=== PATIENT | male | born 1990 | race Caucasian/White ===

== ENCOUNTER 2020-05-13 10:22 | Inpatient (IN) | payer BC ==
[~2020-05-13] VITALS: Ht 182.9 cm; Wt 130.3 kg
--- NOTE | 2020-05-13 10:44 | NUR ---
STATES WENT THROUGH DTS WHILE AT [facility]
[2020-05-13 11:12] LABS: CALC OSMOLALITY 259 mosm/kg (275-300); CALCIUM 8.8 mg/dL (8.5-10.1); CARBON DIOXIDE 27.2 mmol/L (21.0-32.0); CHLORIDE - SERUM 92 mmol/L (98-107); CREATININE - SERUM 1.1 mg/dL (0.6-1.3); GLUCOSE 104 mg/dL (74-106); POTASSIUM - SERUM 3.3 mmol/L (3.5-5.1); SODIUM 129 mmol/L (136-145); UREA NITROGEN 14 mg/dL (7-18); eGFR NON AFRICAN AMERICAN 84 mL/min (90-120)
[2020-05-13 11:16] LABS: BASOPHILS 0.6 % (0-2); EOSINOPHILS 0.3 % (0-7); HEMATOCRIT 30.4 % (42.0-54.0); HEMOGLOBIN 9.7 g/dL (13.5-17.5); IMMATURE GRANULOCYTES 2.7 % (0-5); LYMPHOCYTE ABS# 1.78 10x3/uL (1.32-3.57); LYMPHOCYTES 15.1 % (15-50); MCH 30.3 pg (26.0-34.0); MCHC 31.9 g/dL (31.0-37.0); MEAN PLATELET VOLUME 9.8 fL (7.4-10.4); MONOCYTES 8.1 % (2-11); NEUTROPHILS 73.2 % (40-80); PLATELET COUNT 469 10x3/uL (130-400); RDW 14.3 % (11.5-14.5); WBC 11.8 10x3/uL (4.8-10.8)
[2020-05-13 11:22] LABS: ALBUMIN 2.1 g/dL (3.4-5.0); ALKALINE PHOSPHATASE 98 U/L (30-120); ALT (SGPT) 106 U/L (10-68); AMYLASE - SERUM 60 U/L (25-115); BILIRUBIN - TOTAL 2.78 mg/dL (0.2-1.3); LIPASE 358 U/L (73-393); PROTEIN - SERUM 7.7 g/dL (6.4-8.2); TROPONIN-I < 0.017 ng/mL (0.000-0.060)
[2020-05-13 11:49] VITALS: BP 116/72
[2020-05-13 12:50] VITALS: BP 103/58
[2020-05-13 13:51] VITALS: BP 104/57
[2020-05-13 14:37] LABS: BILIRUBIN NEGATIVE (NEGATIVE); KETONE NEGATIVE (NEGATIVE); NITRITE NEGATIVE (NEGATIVE); UROBILINOGEN NORMAL mg/dL (< 2)
[2020-05-13 15:49] VITALS: BP 129/70
[2020-05-13 16:31] VITALS: BP 154/85
--- NOTE | 2020-05-13 17:33 | MORECARE ---
CASE MANAGEMENT DISCHARGE SUMMARY PATIENT: ARI OWENS UNIT: [id number] ADM DATE: 05/13/20 AGE: 29 : 89 SEX: M ROOM/BED: D.E06 AUTHOR: JUVENTINO GARCIA PHYSICIAN: REFERRING PHYSICIAN: KARINA GAYTAN MD DATE OF SERVICE: 05/13/20 Discharge Plan Patient Name: ARI OWENS [facility] [facility] 1990 Planned Disposition: Home Anticipated Discharge Date: Discharge Date: Expected LOS: Initial Reviewer: [email or web address] Initial Review Date: 05/13/2020 Generated: 05/13/20 6:32 pm DCPIA - Discharge Planning Initial Assessment Updated by [email or web address]: Eduardo Garcia on 05/13/20 5:32 pm * Is the patient Alert and Oriented? Yes * How many steps to enter\exit or inside your home? 0/0 * [facility] * [facility]acy [facility] * Preadmission Environment Home Alone * ADLs Independent * Equipment None * Other Equipment n/a * List name and contact numbers for known caregivers / representatives who currently or will assist patient after discharge: VEENA OWENS (mother) [phone] * Verbal permission to speak to the caregivers and representatives has been obtained from the patient. Yes * Community resources currently utilized None * Please name any agencies selected above. n/a * Additional services required to return to the preadmission environment? No * Can the patient safely return to the preadmission environment? Yes * Has this patient been hospitalized within the prior 30 days at any hospital? No Patient Name: ARI OWENS Page [phone] at 1733 All edits/amendments must be made on the electronic document DICTATION DATE: 05/13/201732 BUDGET RECORD CLERK: NATALIE 05/13/201732 RPT#: [id number] DC DATE: STATUS: ADM IN [facility] [address] [place] [address] END OF REPORT
--- NOTE | 2020-05-13 17:41 | MORECARE ---
CASE MANAGEMENT DISCHARGE SUMMARY PATIENT: ARI ESCOBAR UNIT: [id number] ADM DATE: 05/13/20 AGE: 29 : [birth year] SEX: M ROOM/BED: D.E06 AUTHOR: RADHADOC PHYSICIAN: REFERRING PHYSICIAN: KARINA GAYTAN MD DATE OF SERVICE: 05/13/20 Discharge Plan Patient Name: ARI ESCOBRA Facility: [facility]:[place] : 1990 Planned Disposition: Home Anticipated Discharge Date: Discharge Date: Expected LOS: Initial Reviewer: [email or web address] Initial Review Date: 05/13/2020 Generated: 05/13/20 6:40 pm Comments DCP- Discharge Planning Updated by [email or web address]: Eduardo Garcia on 05/13/20 4:[address] CM met with patient to complete DC plan and to evaluate needs. Patient lives independently home alone. At discharge patient plans to return home and feels this is a safe discharge. CM discussed availability of home health, rehab services, and medical equipment. Patient declined HHS, SNF, IPR, and DME. Patient voiced no other needs at this time and is satisfied with DC plan. Transportation provider at discharge will be with his mother, Veena Escobar ([phone]). CM will continue to follow and will assist as needed with dc plans/needs. DCPIA - Discharge Planning Initial Assessment Updated by [email or web address]: Eduardo Garcia on 05/13/20 5:32 pm * Is the patient Alert and Oriented? Yes * How many steps to enter\exit or inside your home? 0/0 * [facility] * [facility] * Preadmission Environment Home Alone * ADLs Independent * Equipment None * Other Equipment n/a * List name and contact numbers for known caregivers / representatives who currently or will assist patient after discharge: VEENA ESCOBAR (mother) [phone] * Verbal permission to speak to the caregivers and representatives has been obtained from the patient. Yes * Community resources currently utilized None * Please name any agencies selected above. n/a * Additional services required to return to the preadmission environment? No * Can the patient safely return to the preadmission environment? Yes * Has this patient been hospitalized within the prior 30 days at any hospital? No Last DP export: 05/13/20 4:33 p Patient Name: ARI ESCOBAR Page 16040 at 1741 All edits/amendments must be made on the electronic document DICTATION DATE: 05/13/201739 NURSE CONSULTANT: NATALIE 05/13/201739 RPT#: [id number] DC DATE: STATUS: ADM IN [facility] [address] [place] [address] END OF REPORT
[2020-05-13 19:42] VITALS: BP 113/63
[2020-05-14] VITALS: BP 112/63
[2020-05-14 05:49] VITALS: BP 115/61
[2020-05-14 06:53] LABS: ALBUMIN 1.9 g/dL (3.4-5.0); ALKALINE PHOSPHATASE 81 U/L (30-120); ALT (SGPT) 86 U/L (10-68); BILIRUBIN - TOTAL 1.98 mg/dL (0.2-1.3); CALCIUM 8.5 mg/dL (8.5-10.1); CARBON DIOXIDE 25.3 mmol/L (21.0-32.0); CHLORIDE - SERUM 97 mmol/L (98-107); CREATININE - SERUM 1.1 mg/dL (0.6-1.3); GLUCOSE 92 mg/dL (74-106); MAGNESIUM - SERUM 2.1 mg/dL (1.8-2.4); PHOSPHOROUS 3.1 mg/dL (2.5-4.9); POTASSIUM - SERUM 3.6 mmol/L (3.5-5.1); SODIUM 134 mmol/L (136-145); eGFR NON AFRICAN AMERICAN 84 mL/min (90-120)
[2020-05-14 06:54] LABS: CALC OSMOLALITY 269 mosm/kg (275-300); UREA NITROGEN 19 mg/dL (7-18)
[2020-05-14 07:40] LABS: BASOPHILS 0.3 % (0-2); EOSINOPHILS 0.2 % (0-7); HEMATOCRIT 26.3 % (42.0-54.0); HEMOGLOBIN 8.3 g/dL (13.5-17.5); IMMATURE GRANULOCYTES 1.3 % (0-5); LYMPHOCYTES 12.1 % (15-50); MCH 30.4 pg (26.0-34.0); MCHC 31.6 g/dL (31.0-37.0); MCV 96.3 fL (80.0-100.0); MEAN PLATELET VOLUME 9.9 fL (7.4-10.4); NEUTROPHIL ABS# 7.01 10x3/uL (1.78-5.38); NEUTROPHILS 77.1 % (40-80); PLATELET COUNT 430 10x3/uL (130-400); RBC 2.73 10x6/uL (4.20-6.10); RDW 14.5 % (11.5-14.5); WBC 9.1 10x3/uL (4.8-10.8)
[2020-05-14 12:46] VITALS: BMI 36.6
--- NOTE | 2020-05-14 21:15 | NUR ---
PT A/O X4. RR24 COMPLAINS OF PAIN 8/10 ABDOMINAL. PRN PAIN MEDICATION GIVEN AT THIS TIME. VSS. WILL MONITOR.
--- NOTE | 2020-05-14 21:45 | NUR ---
PT STATES PAIN HAS DECREASED TO 3/10 AFTER PAIN MED GIVEN. RR E/U VSS. BED LOW CALL LIGHT WITHIN REACH. WILL CONTINUE TO MONITOR.
[2020-05-14 23:14] VITALS: BP 94/50
--- NOTE | 2020-05-15 03:28 | NUR ---
PT COMPLAINS OF PAIN 11/25. PRN PAIN MEDICATION GIVEN. VSS. WILL CONTINUE TO MONITIOR.
[2020-05-15 07:45] VITALS: BP 131/87
[2020-05-15 08:46] LABS: BASOPHILS 0.4 % (0-2); EOSINOPHILS 0.3 % (0-7); HEMOGLOBIN 8.2 g/dL (13.5-17.5); LYMPHOCYTE ABS# 1.75 10x3/uL (1.32-3.57); LYMPHOCYTES 16.3 % (15-50); MCH 30.6 pg (26.0-34.0); MCHC 31.5 g/dL (31.0-37.0); MEAN PLATELET VOLUME 9.2 fL (7.4-10.4); MONOCYTES 7.5 % (2-11); NEUTROPHIL ABS# 7.98 10x3/uL (1.78-5.38); NEUTROPHILS 74.5 % (40-80); PLATELET COUNT 452 10x3/uL (130-400); RBC 2.68 10x6/uL (4.20-6.10); RDW 14.2 % (11.5-14.5); WBC 10.7 10x3/uL (4.8-10.8)
--- NOTE | 2020-05-15 09:05 | NUR ---
PATIENT IS UP TO BATHROOM FREQUENTLY WITH C/O DIARRHEA. C/O ABDOMINAL PAIN AT 7/10, REQUESTS PAIN MEDICATION.
[2020-05-15 09:15] LABS: ALKALINE PHOSPHATASE 72 U/L (30-120); ALT (SGPT) 73 U/L (10-68); BILIRUBIN - TOTAL 1.98 mg/dL (0.2-1.3); CALC OSMOLALITY 264 mosm/kg (275-300); CALCIUM 7.7 mg/dL (8.5-10.1); CARBON DIOXIDE 23.2 mmol/L (21.0-32.0); CHLORIDE - SERUM 97 mmol/L (98-107); CREATININE - SERUM 1.2 mg/dL (0.6-1.3); GLUCOSE 88 mg/dL (74-106); POTASSIUM - SERUM 3.9 mmol/L (3.5-5.1); PROTEIN - SERUM 6.1 g/dL (6.4-8.2); SODIUM 131 mmol/L (136-145); UREA NITROGEN 20 mg/dL (7-18); eGFR NON AFRICAN AMERICAN 76 mL/min (90-120)
[2020-05-15 10:12] LABS: HEPATITIS C ANTIBODY 0.2 S/CO RAT (0.0-0.9)
[2020-05-15 11:35] VITALS: BP 124/68
--- NOTE | 2020-05-15 13:00 | NUR ---
PATIENT TEACHING ON INCENTIVE SPIROMETER. PATIENT RETURN DEMONSTRATES WITH 1000ML VOLUME AND GOOD EFFORT.
--- NOTE | 2020-05-15 15:33 | NUR ---
[facility] BED TO ROOM FOR PATIENT COMFORT. PATIENT IS AMBULATING TO BATHROOM 2 TO 3 TIMES PER HOUR WITH C/O DIARRHEA. MEDICATED EVERY 2 HOURS WITH 6MG MORPHINE FOR ABDOMINAL PAIN -11/25. RELIEF TO 07/26 WITH EACH DOSE.
--- NOTE | 2020-05-15 17:44 | NUR ---
REPORT CALLED TO WILMA GUZMAN, MED/SURG.
[2020-05-15] MEDS ORDERED: ZYLOPRIM300 MG PO (18:03)
[2020-05-15] MEDS ORDERED: METOPROLOL TART25 MG PO (18:03)
[2020-05-15] MEDS ORDERED: NEXIUM40 MG PO (18:03)
[2020-05-15 18:07] VITALS: BP 127/65; Ht 182.9 cm; Wt 130.3 kg
--- NOTE | 2020-05-15 18:15 | NUR ---
SPOKE WITH DR GAYTAN ABOUT PATIENT HAVING DIARRHEA. ORDER GIVEN FOR ONE TIME DOSE IMMODIUM AND TO COLLECT STOOL SAMPLE TO TEST FOR CDIFF.
--- NOTE | 2020-05-15 18:21 | NUR ---
HAT PLACED IN TOILET AND EDUCATION PROVIDED ON NEED FOR STOOL SAMPLE. VERBALIZED UNDERSTANDING.
--- NOTE | 2020-05-15 19:30 | NUR ---
PT IN BED, AAO X 3, RESP EVEN AND UNLABORED, NO DISTRESS NOTED, CL IN REACH.
[2020-05-15 20:00] VITALS: BP 110/66
[2020-05-16] VITALS: BP 113/75
[2020-05-16 04:00] VITALS: BP 126/64
--- NOTE | 2020-05-16 06:41 | NUR ---
PT IV TO LEFT AC LEAKING, IV REMOVED, THIS NURSE ATTEMPTED TO RESITE IV X 1 STICK, UNSUCCESSFUL AT THIS TIME, PT REFUSES TO BE STUCK AGAIN AT THIS TIME.
[2020-05-16 08:45] VITALS: BP 123/62
[2020-05-16 10:09] LABS: ALBUMIN 1.9 g/dL (3.4-5.0); ALKALINE PHOSPHATASE 69 U/L (30-120); ALT (SGPT) 58 U/L (10-68); BILIRUBIN - TOTAL 1.67 mg/dL (0.2-1.3); CALC OSMOLALITY 255 mosm/kg (275-300); CALCIUM 7.7 mg/dL (8.5-10.1); CARBON DIOXIDE 23.2 mmol/L (21.0-32.0); CHLORIDE - SERUM 97 mmol/L (98-107); GLUCOSE 107 mg/dL (74-106); POTASSIUM - SERUM 3.7 mmol/L (3.5-5.1); PROTEIN - SERUM 6.2 g/dL (6.4-8.2); SODIUM 127 mmol/L (136-145); UREA NITROGEN 16 mg/dL (7-18); eGFR NON AFRICAN AMERICAN > 90 mL/min (90-120)
[2020-05-16 11:04] LABS: BASOPHILS 0.3 % (0-2); EOSINOPHILS 0.3 % (0-7); HEMATOCRIT 23.1 % (42.0-54.0); IMMATURE GRANULOCYTES 0.8 % (0-5); LYMPHOCYTE ABS# 1.21 10x3/uL (1.32-3.57); LYMPHOCYTES 13.1 % (15-50); MCH 30.5 pg (26.0-34.0); MCHC 31.2 g/dL (31.0-37.0); MCV 97.9 fL (80.0-100.0); MONOCYTES 9.8 % (2-11); NEUTROPHIL ABS# 6.97 10x3/uL (1.78-5.38); NEUTROPHILS 75.7 % (40-80); PLATELET COUNT 443 10x3/uL (130-400); RBC 2.36 10x6/uL (4.20-6.10); RDW 14.2 % (11.5-14.5); WBC 9.2 10x3/uL (4.8-10.8)
[2020-05-16 11:13] LABS: HEMOGLOBIN 7.2 g/dL (13.5-17.5)
--- NOTE | 2020-05-16 11:18 | NUR ---
DR SALAS PAGED TO NOTIFY OF PATIENT'S HGB 7.2. WAITING CALL BACK.
[2020-05-16 11:59] VITALS: BP 117/58
--- NOTE | 2020-05-16 16:00 | NUR ---
PATIENT IN BED WITH IV INTACT. NO COMPLAINTS BESIDES HEARTBURN. STATED PROTONIX DID NOT HELP. CALL LIGHT WITHIN REACH.
[2020-05-16 17:28] VITALS: BP 105/66
[2020-05-16 21:06] VITALS: BP 137/46
[2020-05-17 02:32] VITALS: BP 120/73
--- NOTE | 2020-05-17 03:00 | NUR ---
I have reviewed this patient and I concur with the Shift Assessment completed by the Licensed Practical Nurse today this shift.
[2020-05-17 05:26] LABS: BASOPHILS 0.2 % (0-2); EOSINOPHILS 0.5 % (0-7); HEMATOCRIT 23.3 % (42.0-54.0); IMMATURE GRANULOCYTES 0.2 % (0-5); LYMPHOCYTE ABS# 0.77 10x3/uL (1.32-3.57); LYMPHOCYTES 13.8 % (15-50); MCH 30.4 pg (26.0-34.0); MCHC 32.2 g/dL (31.0-37.0); MEAN PLATELET VOLUME 9.4 fL (7.4-10.4); MONOCYTES 8.1 % (2-11); NEUTROPHIL ABS# 4.32 10x3/uL (1.78-5.38); NEUTROPHILS 77.2 % (40-80); RBC 2.47 10x6/uL (4.20-6.10); RDW 14.2 % (11.5-14.5)
[2020-05-17 05:32] LABS: HEMOGLOBIN 7.5 g/dL (13.5-17.5); MCV 94.3 fL (80.0-100.0); PLATELET COUNT 349 10x3/uL (130-400); WBC 5.6 10x3/uL (4.8-10.8)
[2020-05-17 06:05] VITALS: BP 110/54
--- NOTE | 2020-05-17 09:00 | NUR ---
ASSESSMENT PER FLOW SHEET. PATIENT IS WITHOUT DISTRESS. MONITOR FOR NEEDS
[2020-05-17 10:00] VITALS: BP 120/61
[2020-05-17 12:23] VITALS: BP 127/53
--- NOTE | 2020-05-17 14:17 | NUR ---
HAS BEEN RESTING.DENIES NEEDS.CALL LIGHT IN REACH
[2020-05-17 17:37] VITALS: BP 104/51
--- NOTE | 2020-05-17 19:00 | NUR ---
RECEIVED REPORT, ASSUMED CARE, BREATHING EVEN UNLABORED, CALL LIGHT IN REACH, BED LOWEST POSITION, DENIES NEEDS, ENCOURAGED PT TO NOTIFY STAFF OF ANY NEEDS
[2020-05-17 21:18] VITALS: BP 127/61
[2020-05-18 02:01] VITALS: BP 123/58
--- NOTE | 2020-05-18 03:00 | NUR ---
I have reviewed this patient and I concur with the Shift Assessment completed by the Licensed Practical Nurse today this shift.
[2020-05-18 04:54] LABS: BASOPHILS 0.2 % (0-2); EOSINOPHILS 0.5 % (0-7); HEMATOCRIT 25.4 % (42.0-54.0); HEMOGLOBIN 7.9 g/dL (13.5-17.5); IMMATURE GRANULOCYTES 0.4 % (0-5); LYMPHOCYTE ABS# 1.01 10x3/uL (1.32-3.57); LYMPHOCYTES 12.5 % (15-50); MCH 29.8 pg (26.0-34.0); MCHC 31.1 g/dL (31.0-37.0); MCV 95.8 fL (80.0-100.0); MEAN PLATELET VOLUME 9.4 fL (7.4-10.4); MONOCYTES 7.2 % (2-11); NEUTROPHIL ABS# 6.42 10x3/uL (1.78-5.38); NEUTROPHILS 79.2 % (40-80); PLATELET COUNT 449 10x3/uL (130-400); RBC 2.65 10x6/uL (4.20-6.10); RDW 14.3 % (11.5-14.5); WBC 8.1 10x3/uL (4.8-10.8)
[2020-05-18 06:12] VITALS: BP 89/38
--- NOTE | 2020-05-18 08:00 | NUR ---
ASSESSMENT PER FLOW SHEET. PATIENT IS WITHOUT DISTRESS.CALL LIGHT IN REACH. DENIES NEEDS
[2020-05-18 09:20] VITALS: BP 122/56
[2020-05-18 13:38] VITALS: BP 103/49
[2020-05-18 17:13] VITALS: BP 111/60
--- NOTE | 2020-05-18 18:38 | NUR ---
HAS AMBULATED MULTIPLE TIMES TODAY IN HALLS. TOLERATING REG DIET.CONT PLAN OF CARE
--- NOTE | 2020-05-18 19:00 | NUR ---
RECEIVED REPORT, ASSUMED CARE, BREATHING EVEN UNLABORED, CALL LIGHT IN REACH, BED LOWEST POSITION, DENIES NEEDS, ENCOURAGED PT TO NOTIFY STAFF OF ANY NEEDS
[2020-05-18 21:39] VITALS: BP 109/62
--- NOTE | 2020-05-19 04:16 | NUR ---
I have reviewed this patient and I concur with the Shift Assessment completed by the Licensed Practical Nurse today this shift.
[2020-05-19 06:44] VITALS: BP 111/53
[2020-05-19 06:49] LABS: BASOPHILS 0.2 % (0-2); EOSINOPHILS 0.4 % (0-7); IMMATURE GRANULOCYTES 0.4 % (0-5); LYMPHOCYTE ABS# 0.86 10x3/uL (1.32-3.57); LYMPHOCYTES 17.4 % (15-50); MCH 30.1 pg (26.0-34.0); MCHC 31.3 g/dL (31.0-37.0); MCV 96.2 fL (80.0-100.0); MEAN PLATELET VOLUME 9.3 fL (7.4-10.4); MONOCYTES 7.1 % (2-11); NEUTROPHIL ABS# 3.69 10x3/uL (1.78-5.38); NEUTROPHILS 74.5 % (40-80); PLATELET COUNT 363 10x3/uL (130-400); RBC 2.39 10x6/uL (4.20-6.10); RDW 14.1 % (11.5-14.5)
[2020-05-19 07:16] LABS: HEMOGLOBIN 7.2 g/dL (13.5-17.5)
[2020-05-19 08:49] VITALS: BP 104/58
--- NOTE | 2020-05-19 09:21 | NUR ---
DR SALAS PAGED TO NOTIFY OF HGB 7.2. WAITING CALL BACK.
--- NOTE | 2020-05-19 09:23 | NUR ---
ORDER PLACED FOR BLOOD TRANSFUSION PER MD.
--- NOTE | 2020-05-19 10:06 | NUR ---
ALERT AND ORIENTED. ASSESSMENT COMPLETE. DENIES NEEDS. BED LOW. CALL CASTELLON AND PERSONAL ITEMS IN REACH. WILL CONTINUE TO MONITOR.
--- NOTE | 2020-05-19 10:41 | NUR ---
SPOKE WITH CT WHO STATES PATIENT NEEDS IV CONTRAST FOR CTA FOR PACREATITIS. ORDER IS FOR ORAL CONTRAST ONLY. DR DOSS PAGED FOR CLARIFICATION. WAITING CALL BACK.
--- NOTE | 2020-05-19 10:45 | NUR ---
SPOKE WITH DR DOSS WHO STATES OK FOR IV CONTRAST. NUBIA IN CT STATES WILL BE UP SOON TO GET PATIENT.
[2020-05-19 12:05] VITALS: BP 119/53
--- NOTE | 2020-05-19 13:57 | NUR ---
SECOND IV SITED TO LFA FOR ABX. BLOOD TRANSFUSION UNIT 1 INITIATED TO LEFT HAND IV. VITALS STABLE.
--- NOTE | 2020-05-19 14:06 | NUR ---
BLOOD CONTINUES TRANSFUSING. VITALS REMAIN STABLE.
--- NOTE | 2020-05-19 14:20 | NUR ---
Nutrition Follow-up/Re-assessment: Diet: Cardiac NO FAT PO intake: ~78% average x last 9 meals; spoke with patient at bedside. He states that he is aware that MD does not want him consuming fat. Discussed how we would help manage with this diet in the kitchen. He states that he likes fruits but does not care for vegetables much. States that he will try to eat more vegetables. States that he would eat baked chicken breast and potatoes and rice as well. He states that he will be NPO at midnight for possible surgery tomorrow. He also states that his sodium is low and request gatorade for replenishment. Last BM: 05/18/19 x 10 (diarrhea). Wt: 270# (05/15/20) Meds noted: abx, banana bag, probiotics Labs noted: Na 127(L), Glu 107(H), Alb 1.9(L) Estimated and energy and protein needs unchanged from initial assessment. Recommend: -PO diet per MD, dietary will try to accomodate this as much as possible. -Will add gatorade with meal trays per patient request. -RD will follow-up within 3-4 days.
--- NOTE | 2020-05-19 17:33 | NUR ---
BLOOD TRANSFUSION UNIT 2 INITIATED. VITALS STABLE. WILL CONTINUE TO MONITOR.
[2020-05-19 18:05] VITALS: BP 102/56
--- NOTE | 2020-05-19 19:00 | NUR ---
BEDSIDE REPORT RECEIVED AND CARE OF PT ASSUMED.
--- NOTE | 2020-05-19 19:10 | NUR ---
2ND UNIT OF 2 INFUSING AT SHIFT CHANGE.
[2020-05-19 20:48] VITALS: BP 117/66
--- NOTE | 2020-05-19 21:05 | NUR ---
2ND UNIT OF 2 COMPLETE AND LINE FLUSHING.
[2020-05-20] VITALS (9 sets, daily range): BP systolic 101–121; BP diastolic 64–91
[2020-05-20 08:22] LABS: BASOPHILS 0.2 % (0-2); EOSINOPHILS 1.4 % (0-7); HEMATOCRIT 28.8 % (42.0-54.0); HEMOGLOBIN 9.2 g/dL (13.5-17.5); IMMATURE GRANULOCYTES 0.2 % (0-5); LYMPHOCYTE ABS# 0.78 10x3/uL (1.32-3.57); LYMPHOCYTES 18.4 % (15-50); MCH 30.3 pg (26.0-34.0); MCHC 31.9 g/dL (31.0-37.0); MCV 94.7 fL (80.0-100.0); MEAN PLATELET VOLUME 10.4 fL (7.4-10.4); MONOCYTES 10.6 % (2-11); NEUTROPHIL ABS# 2.94 10x3/uL (1.78-5.38); NEUTROPHILS 69.2 % (40-80); PLATELET COUNT 321 10x3/uL (130-400); RBC 3.04 10x6/uL (4.20-6.10); RDW 15.2 % (11.5-14.5); WBC 4.3 10x3/uL (4.8-10.8)
--- NOTE | 2020-05-20 14:01 | NUR ---
PATIENT PREOPED AT THIS TIME. IV INTACT. NO COMPLAINTS. EXPLAINED HE HAD TO REMOVE HIS PANTS AND SOCKS BEFORE GOING. VERBALIZED UNDERSTANDING. CALL LIGHT WITHIN REACH.
--- NOTE | 2020-05-20 15:50 | NUR ---
PATIENT TO SURGERY
--- NOTE | 2020-05-20 17:34 | NUR ---
2 LAPS LEFT IN ABDOMEN PER DR DOSS, PLAN ON BRING BACK TO OR IN 48HOURS
[2020-05-20 19:54] LABS: HEMATOCRIT 26.5 % (42.0-54.0); HEMOGLOBIN 8.5 g/dL (13.5-17.5)
--- NOTE | 2020-05-20 20:43 | NUR ---
CALLED AND SPOKE WITH ANSWERING SERVICE FOR DR GUEVARA. NUMBER LEFT FOR CALL BACK.
--- NOTE | 2020-05-20 20:46 | NUR ---
ANP CALLED BACK AND RELATED DR GUEVARA WANTS TO BE CALLED ON HIS PATIENT. WAS GIVEN DR GUEVARA'S CELL PHONE NUMBER.
--- NOTE | 2020-05-20 20:50 | NUR ---
DR GUEVARA CALLED AND WAS INFORMED THE XRAY SHOWED THE RIGHT IJ NEEDED TO BE PULLED BACK 12 CM. SAID TO CALL ANESTHESIA. CALLED ANESTHESIA.
--- NOTE | 2020-05-20 21:05 | NUR ---
ARIA TORRES CAME AND REPLACED THE RIGHT IJ. X RAY ORDERED.
--- NOTE | 2020-05-20 23:25 | NUR ---
RECEIVED XRAY REPORT ON RIGHT IJ. CALLED BRIAN NAVARRETE CRNA AND INFORMED HIM OF THE REPORT. SAILING OFFICER CONFIRMED THE RIGHT IJ CAN BE USED.
[2020-05-21] VITALS (28 sets, daily range): BP systolic 101–131; BP diastolic 60–92
--- NOTE | 2020-05-21 00:06 | NUR ---
CALLED NIKO GAYTAN MD REGARDING FINDINGS ON CXR.
--- NOTE | 2020-05-21 00:35 | NUR ---
MOSES LEIVA CALLED BACK AND WAS INFORMED OF THE NEW FINDINGS ON THE CXR OF NEW PATCHY [place] OPACITIES BILATERALLY. ORDER RECEIVED FOR COVID 19 ANTIGEN AND SARS TO BE COLLECTED.
--- NOTE | 2020-05-21 00:50 | NUR ---
PATIENT SWABBED AND TAKEN TO LAB. LINENS CHANGED FROM DRAINAGE OF INCISION SITE.
[2020-05-21 02:33] LABS: SARS-CoV-2 ANTIGEN NEGATIVE- SARS-COV-2 (NEGATIVE)
[2020-05-21 05:48] LABS: BASOPHILS 0.6 % (0-2); EOSINOPHILS 0.6 % (0-7); HEMOGLOBIN 7.6 g/dL (13.5-17.5); IMMATURE GRANULOCYTES 0.3 % (0-5); LYMPHOCYTES 13.8 % (15-50); MCHC 31.7 g/dL (31.0-37.0); MCV 94.9 fL (80.0-100.0); MEAN PLATELET VOLUME 10.1 fL (7.4-10.4); MONOCYTES 10.5 % (2-11); NEUTROPHILS 74.2 % (40-80); PLATELET COUNT 285 10x3/uL (130-400); RBC 2.53 10x6/uL (4.20-6.10); RDW 14.7 % (11.5-14.5); WBC 3.6 10x3/uL (4.8-10.8)
[2020-05-21 05:53] LABS: ALBUMIN 1.3 g/dL (3.4-5.0); ALKALINE PHOSPHATASE 45 U/L (30-120); ALT (SGPT) 26 U/L (10-68); BILIRUBIN - TOTAL 0.93 mg/dL (0.2-1.3); CALC OSMOLALITY 272 mosm/kg (275-300); CALCIUM 7.2 mg/dL (8.5-10.1); CARBON DIOXIDE 25.6 mmol/L (21.0-32.0); CHLORIDE - SERUM 104 mmol/L (98-107); CREATININE - SERUM 0.6 mg/dL (0.6-1.3); GLUCOSE 99 mg/dL (74-106); LIPASE 128 U/L (73-393); POTASSIUM - SERUM 3.5 mmol/L (3.5-5.1); PROTEIN - SERUM 4.7 g/dL (6.4-8.2); SODIUM 137 mmol/L (136-145); UREA NITROGEN 9 mg/dL (7-18); eGFR NON AFRICAN AMERICAN > 90 mL/min (90-120)
--- NOTE | 2020-05-21 07:10 | NUR ---
PT RECIEVED RESTING IN BED AT THIS TIME. SEE SHIFT ASSESSMENT FOR ASSESSMENT FINDINGS
--- NOTE | 2020-05-21 09:10 | NUR ---
SPOKE TO MOM UPDATED CONDITION
--- NOTE | 2020-05-21 11:16 | NUR ---
Nutrition follow-up: Pt s/p exploratory lap; now in ICU Clear liquid diet labs reviewed Wt: 293# RDN will monitor patients diet advancement, tolerance and progress Follow-up: 05/23/20
--- NOTE | 2020-05-21 12:00 | NUR ---
MORPHINE IV PUSH IS NOT HELPING PT WITH PAIN, CONTACTED DR. DOSS FOR FUTHER ORDERS.
--- NOTE | 2020-05-21 18:26 | NUR ---
I have reviewed this patient and I concur with the Shift Assessment completed by the Licensed Practical Nurse today this shift.
[2020-05-22] VITALS (16 sets, daily range): BP systolic 118–143; BP diastolic 66–96
--- NOTE | 2020-05-22 01:05 | NUR ---
STERILE SITE CARE. TRANSPARENT DRESSING AND CHG PATCH APPLIED PER WILMA CUMMINGS
[2020-05-22 04:27] LABS: BASOPHILS 0.7 % (0-2); EOSINOPHILS 1.9 % (0-7); IMMATURE GRANULOCYTES 0.2 % (0-5); LYMPHOCYTE ABS# 0.64 10x3/uL (1.32-3.57); LYMPHOCYTES 15.3 % (15-50); MCH 29.6 pg (26.0-34.0); MEAN PLATELET VOLUME 9.4 fL (7.4-10.4); MONOCYTES 9.3 % (2-11); NEUTROPHIL ABS# 3.04 10x3/uL (1.78-5.38); NEUTROPHILS 72.6 % (40-80); PLATELET COUNT 270 10x3/uL (130-400); WBC 4.2 10x3/uL (4.8-10.8)
[2020-05-22 04:37] LABS: HEMATOCRIT 30.3 % (42.0-54.0); HEMOGLOBIN 9.7 g/dL (13.5-17.5); MCV 92.4 fL (80.0-100.0); RBC 3.28 10x6/uL (4.20-6.10)
[2020-05-22 04:47] LABS: CALC OSMOLALITY 261 mosm/kg (275-300); CALCIUM 7.3 mg/dL (8.5-10.1); CARBON DIOXIDE 26.1 mmol/L (21.0-32.0); CHLORIDE - SERUM 102 mmol/L (98-107); CREATININE - SERUM 0.6 mg/dL (0.6-1.3); GLUCOSE 97 mg/dL (74-106); POTASSIUM - SERUM 3.4 mmol/L (3.5-5.1); SODIUM 131 mmol/L (136-145); UREA NITROGEN 9 mg/dL (7-18); eGFR NON AFRICAN AMERICAN > 90 mL/min (90-120)
--- NOTE | 2020-05-22 13:37 | NUR ---
TRANSFER FROM ICU BY BED. OREINTED TO ROOM. CALL LIGHT IN REACH. WILL CONT. PLAN OF CARE.
[2020-05-23 00:39] VITALS: BP 144/84
[2020-05-23 05:31] VITALS: BP 151/82
--- NOTE | 2020-05-23 10:00 | NUR ---
ALERT AND ORIENTED X4. IVF INFUSING TO RIGHT IJ WITH NO S/S OF INFECTION/INFILTRATION WITH MICROSTRATEGY ARCHITECT DEVELOPER MS CONTINUOUS INFUSION NOTED WITH NO APNEA NOTED. UP WITH ASSSIT TO BATHROOM WITH R/WALKER. ABDOMINAL WOUND VAC INTACT WITH KATHLEEN DRAINS X2 WITH SEROUS DRAINAGE NOTED. REFUSES SCD'S AT THIS TIME. ENCOURAGED TO USE CALL LIGHT FOR ASSIST. BOWEL SOUNDS HYPOACTIVE WITH SOME FLATULANCE NOTED WHILE UP IN BATHROOM.
--- NOTE | 2020-05-23 12:21 | NUR ---
Nutrition Reassessment/Follow-up: Pt in droplet isolation; covid-19+. POD 1 washout & debridement of peripancreatic tissue with drainage, removal of laparotomy pads, placement of wound vac. Diet advanced per surgery this AM. Diet: Regular, Low Fat, No Fat Wt: 286.6# (05/22); 293# (05/21) Labs noted (05/22); Na 131, K+ 3.4, Ca 7.3 Meds noted: Lasix, Florajen, Protonix, vit D, LR @ 100, banana bag @ 125, electrolyte protocol -Nutrition needs unchanged. -Encourage PO intake and honor food preferences within diet restrictions. -Monitor wt. -RD follow-up: 05/27
[2020-05-23 18:49] VITALS: BP 140/76
[2020-05-23 20:41] VITALS: BP 136/72
[2020-05-24] VITALS: BP 112/70
[2020-05-24 04:00] VITALS: BP 119/77
[2020-05-24 08:00] VITALS: BP 121/79
[2020-05-24 08:34] LABS: BASOPHILS 0.4 % (0-2); EOSINOPHILS 2.1 % (0-7); HEMATOCRIT 28.8 % (42.0-54.0); HEMOGLOBIN 9.1 g/dL (13.5-17.5); IMMATURE GRANULOCYTES 0.6 % (0-5); LYMPHOCYTE ABS# 0.47 10x3/uL (1.32-3.57); LYMPHOCYTES 9.9 % (15-50); MCH 29.4 pg (26.0-34.0); MCHC 31.6 g/dL (31.0-37.0); MCV 92.9 fL (80.0-100.0); MEAN PLATELET VOLUME 9.8 fL (7.4-10.4); MONOCYTES 7.2 % (2-11); NEUTROPHIL ABS# 3.78 10x3/uL (1.78-5.38); NEUTROPHILS 79.8 % (40-80); PLATELET COUNT 234 10x3/uL (130-400); RDW 15.2 % (11.5-14.5); WBC 4.7 10x3/uL (4.8-10.8)
[2020-05-24 08:55] LABS: ALBUMIN 1.3 g/dL (3.4-5.0); ALKALINE PHOSPHATASE 49 U/L (30-120); ALT (SGPT) 16 U/L (10-68); BILIRUBIN - TOTAL 0.66 mg/dL (0.2-1.3); CALC OSMOLALITY 273 mosm/kg (275-300); CALCIUM 7.5 mg/dL (8.5-10.1); CARBON DIOXIDE 28.1 mmol/L (21.0-32.0); CHLORIDE - SERUM 102 mmol/L (98-107); CREATININE - SERUM 0.6 mg/dL (0.6-1.3); GLUCOSE 102 mg/dL (74-106); POTASSIUM - SERUM 3.8 mmol/L (3.5-5.1); PROTEIN - SERUM 4.7 g/dL (6.4-8.2); SODIUM 137 mmol/L (136-145); UREA NITROGEN 12 mg/dL (7-18); eGFR NON AFRICAN AMERICAN > 90 mL/min (90-120)
--- NOTE | 2020-05-24 09:14 | NUR ---
AM MEDS GIVEN AT THIS TIME. PT A/O X4, RESP EVEN AND NONLABORED ON 2L NC. RT IJ INFUSING LR AT 150, MOPRINE VULCANIZED FIBER UNIT OPERATOR AT 1MG CONT, AND NS AT 10CC/HR. WOUND VAC IN PLACE TO ABD WITH 2 KATHLEEN DRAINS, EMPTIED 30CC OUT OF EACH KATHLEEN DRAIN. SR 96 ON TELEMETRY. MCCLENDON DRAINING DARK URINE TO GRAVITY. PT DENIES ANY NEEDS AT THIS TIME. CALL LIGHT IN REACH, NAD NOTED, WILL CONTINUE PLAN OF CARE.
--- NOTE | 2020-05-24 10:20 | NUR ---
SCHEDELED TORADOL GIVEN FOR PAIN LEVEL OF 7/10. PT DENIES ANY OTHER NEEDS, CALL LIGHT IN REACH.
[2020-05-24 11:30] VITALS: BP 124/81
[2020-05-24 15:00] VITALS: BP 120/86
--- NOTE | 2020-05-24 20:00 | NUR ---
INITIAL ROUNDS AND ASSESSMENT COMPLETED. NO DISTRESS. RESTING IN BED. CALL LIGHT IN REACH.
[2020-05-24 21:00] VITALS: BP 148/81
--- NOTE | 2020-05-24 23:00 | NUR ---
ALL BEDTIME MEDS GIVEN. MCCLENDON PATENT TO BEDSIDE DRAIN BAG. PT WAS SEEN BY DR OLSON ON ROUNDS. DRESSING TO ABDOMINAL INCISON INTACT AND PATENT TO WOUND VAC. KATHLEEN DRAINS X [address] SR PER TELEMETRY. MORPHINE VEHICLE SALES PROFESSIONAL TO RIGHT JUGULAR CVL FOR PAIN CONTROL.
[2020-05-25 01:00] VITALS: BP 142/88
--- NOTE | 2020-05-25 02:43 | NUR ---
EYES CLOSED. RESPS EVEN/NONLABORED. NO DISTRESS. NEW MORPHINE PARTS CONSULTANT VIAL NOW UP AND CONTINOUS INFUSION IN PLACE FOR PAIN CONTROL. CALL LIGHT IN REACH.
[2020-05-25 04:30] VITALS: BP 122/77
--- NOTE | 2020-05-25 06:44 | NUR ---
NO CHANGE FROM INITIAL SHIFT ASSESSMENT. BOTH KATHLEEN DRAINS EMPITED. TOTAL OF 55ML OUTPUT. WOUND VAC IN PLACE. REPORT TO ONCOMING NURSE.
[2020-05-25 06:59] VITALS: BP 125/79
--- NOTE | 2020-05-25 09:04 | NUR ---
AM MEDS GIVEN AT THIS. PT A/O X4, RESP EVEN AND NONLABORED ON 2L NC. MCCLENDON DRAINING DARK URINE TO GRAVITY. SR-93. ABD DRESSING CDI, WOUND VAC AND KATHLEEN DRAINS IN PLACE. RT IJ INFUSING NS AT KVO AND MORPHINE 1MG CONT. PT DENIES ANY NEEDS AT THIS TIME, CALL LIGHT IN REACH, WILL CONTINUE PLAN OF CARE.
--- NOTE | 2020-05-25 14:19 | NUR ---
CAMPAIGN MANAGER PROVIDED PT WITH SUPPLIES NEEDED TO GET CLEANED UP. COMPLETE LINEN CHANGE ALSO PROVIDED.
[2020-05-25 14:44] VITALS: BP 124/77
[2020-05-25 21:15] VITALS: BP 141/77
[2020-05-26 05:00] VITALS: BP 160/76
[2020-05-26 05:53] LABS: BASOPHILS 0.5 % (0-2); EOSINOPHILS 2.3 % (0-7); HEMATOCRIT 26.9 % (42.0-54.0); HEMOGLOBIN 8.4 g/dL (13.5-17.5); IMMATURE GRANULOCYTES 0.2 % (0-5); LYMPHOCYTE ABS# 0.52 10x3/uL (1.32-3.57); LYMPHOCYTES 12.1 % (15-50); MCH 29.2 pg (26.0-34.0); MCHC 31.2 g/dL (31.0-37.0); MCV 93.4 fL (80.0-100.0); MEAN PLATELET VOLUME 9.9 fL (7.4-10.4); MONOCYTES 7.7 % (2-11); NEUTROPHIL ABS# 3.33 10x3/uL (1.78-5.38); NEUTROPHILS 77.2 % (40-80); PLATELET COUNT 233 10x3/uL (130-400); RBC 2.88 10x6/uL (4.20-6.10); RDW 14.9 % (11.5-14.5); WBC 4.3 10x3/uL (4.8-10.8)
[2020-05-26 06:37] LABS: ALBUMIN 1.3 g/dL (3.4-5.0); ALKALINE PHOSPHATASE 55 U/L (30-120); ALT (SGPT) 12 U/L (10-68); CALC OSMOLALITY 272 mosm/kg (275-300); CALCIUM 7.5 mg/dL (8.5-10.1); CARBON DIOXIDE 29.5 mmol/L (21.0-32.0); CHLORIDE - SERUM 104 mmol/L (98-107); CREATININE - SERUM 0.6 mg/dL (0.6-1.3); GLUCOSE 98 mg/dL (74-106); MAGNESIUM - SERUM 1.7 mg/dL (1.8-2.4); PHOSPHOROUS 3.4 mg/dL (2.5-4.9); POTASSIUM - SERUM 3.5 mmol/L (3.5-5.1); PROTEIN - SERUM 4.6 g/dL (6.4-8.2); SODIUM 137 mmol/L (136-145); TROPONIN-I < 0.017 ng/mL (0.000-0.060); UREA NITROGEN 9 mg/dL (7-18); eGFR NON AFRICAN AMERICAN > 90 mL/min (90-120)
[2020-05-26 07:26] VITALS: BP 127/80
--- NOTE | 2020-05-26 09:52 | MORECARE ---
CASE MANAGEMENT DISCHARGE SUMMARY PATIENT: ARI ESCOBAR UNIT: [id number] ADM DATE: 05/13/20 AGE: 30 : [birth year] SEX: M ROOM/BED: D.5825 AUTHOR: RADHA,DOC PHYSICIAN: REFERRING PHYSICIAN: KARINA GAYTAN MD DATE OF SERVICE: 05/26/20 Discharge Plan Patient Name: ARI ESCOBAR Facility: [facility]:[place] : 1990 Planned Disposition: Home Anticipated Discharge Date: Discharge Date: Expected LOS: Initial Reviewer: [email or web address] Initial Review Date: 05/13/2020 Generated: 05/26/20 10:51 am DCP- Discharge Planning Updated by [email or web address]: Eduardo Garcia on 05/13/20 4:[address] CM met with patient to complete DC plan and to evaluate needs. Patient lives independently home alone. At discharge patient plans to return home and feels this is a safe discharge. CM discussed availability of home health, rehab services, and medical equipment. Patient declined HHS, SNF, IPR, and DME. Patient voiced no other needs at this time and is satisfied with DC plan. Transportation provider at discharge will be with his mother, Veena Escobar ([phone]). CM will continue to follow and will assist as needed with dc plans/needs. DCPIA - Discharge Planning Initial Assessment Updated by [email or web address]: Eduardo Garcia on 05/13/20 5:32 pm * Is the patient Alert and Oriented? Yes * How many steps to enter\exit or inside your home? 0/0 * [facility] * [facility] * Preadmission Environment Home Alone * ADLs Independent * Equipment None * Other Equipment n/a * List name and contact numbers for known caregivers / representatives who currently or will assist patient after discharge: VEENA ESCOBAR (mother) [phone] * Verbal permission to speak to the caregivers and representatives has been obtained from the patient. Yes * Community resources currently utilized None * Please name any agencies selected above. n/a * Additional services required to return to the preadmission environment? No * Can the patient safely return to the preadmission environment? Yes * Has this patient been hospitalized within the prior 30 days at any hospital? No External Providers External Provider: [id number] Next Contact Date: Service Request Date: Service Type: Resolution: Reviewer: Comments: Last DP export: 05/13/20 4:40 p Patient Name: ARI ESCOBAR Page 93991 at 0952 All edits/amendments must be made on the electronic document DICTATION DATE: 05/26/20950 HAND STAMPER: NATALIE 05/26/20950 RPT#: [id number] DC DATE: STATUS: ADM IN [facility] [address] [place] [address] END OF REPORT
--- NOTE | 2020-05-26 10:00 | NUR ---
KATHLEEN DRAINS AND MCCLENDON DCD BY PHYSICIANS SHEET METAL WORKER MAINTENANCE. WILL CONT. PLAN OF CARE.
--- NOTE | 2020-05-26 10:22 | MORECARE ---
CASE MANAGEMENT DISCHARGE SUMMARY PATIENT: ARI ESCOBAR UNIT: [id number] ADM DATE: 05/13/20 AGE: 30 : [birth year] SEX: M ROOM/BED: D.1235 AUTHOR: RADHA,DOC PHYSICIAN: REFERRING PHYSICIAN: KARINA GAYTAN MD DATE OF SERVICE: 05/26/20 Discharge Plan Patient Name: ARI ESCOBAR Facility: [facility]:[place] : 1990 Planned Disposition: Home Anticipated Discharge Date: Discharge Date: Expected LOS: Initial Reviewer: [email or web address] Initial Review Date: 05/13/2020 Generated: 05/26/20 11:22 am DCP- Discharge Planning Updated by [email or web address]: Eduardo Garcia on 05/13/20 4:[address] CM met with patient to complete DC plan and to evaluate needs. Patient lives independently home alone. At discharge patient plans to return home and feels this is a safe discharge. CM discussed availability of home health, rehab services, and medical equipment. Patient declined HHS, SNF, IPR, and DME. Patient voiced no other needs at this time and is satisfied with DC plan. Transportation provider at discharge will be with his mother, Veena Escobar ([phone]). CM will continue to follow and will assist as needed with dc plans/needs. DCPIA - Discharge Planning Initial Assessment Updated by [email or web address]: Eduardo Garcia on 05/13/20 5:32 pm * Is the patient Alert and Oriented? Yes * How many steps to enter\exit or inside your home? 0/0 * [facility] * [facility] * Preadmission Environment Home Alone * ADLs Independent * Equipment None * Other Equipment n/a * List name and contact numbers for known caregivers / representatives who currently or will assist patient after discharge: VEENA ESCOBAR (mother) [phone] * Verbal permission to speak to the caregivers and representatives has been obtained from the patient. Yes * Community resources currently utilized None * Please name any agencies selected above. n/a * Additional services required to return to the preadmission environment? No * Can the patient safely return to the preadmission environment? Yes * Has this patient been hospitalized within the prior 30 days at any hospital? No External Providers External Provider: [facility] Next Contact Date: Service Request Date: Service Type: Resolution: Reviewer: Comments: Last DP export: 05/26/20 8:52 am Patient Name: ARI ESCOBAR Page 88153 at 1022 All edits/amendments must be made on the electronic document DICTATION DATE: 05/26/20 1022 BLIND LACER: NATALIE 05/26/20 1022 RPT#: [id number] DC DATE: STATUS: ADM IN [facility] [address] [place] [address] END OF REPORT
--- NOTE | 2020-05-26 12:40 | MORECARE ---
CASE MANAGEMENT DISCHARGE SUMMARY PATIENT: ARI ESCOBAR UNIT: [id number] ADM DATE: 05/13/20 AGE: 30 : [birth year] SEX: M ROOM/BED: D.2115 AUTHOR: RADHA,DOC PHYSICIAN: REFERRING PHYSICIAN: KARINA GAYTAN MD DATE OF SERVICE: 05/26/20 Discharge Plan Patient Name: ARI ESCOBAR Facility: [facility]:[place] : 1990 Planned Disposition: Home Anticipated Discharge Date: Discharge Date: Expected LOS: Initial Reviewer: [email or web address] Initial Review Date: 05/13/2020 Generated: 05/26/20 1:40 pm DCP- Discharge Planning Updated by [email or web address]: Eduardo Garcia on 05/13/20 4:[address] CM met with patient to complete DC plan and to evaluate needs. Patient lives independently home alone. At discharge patient plans to return home and feels this is a safe discharge. CM discussed availability of home health, rehab services, and medical equipment. Patient declined HHS, SNF, IPR, and DME. Patient voiced no other needs at this time and is satisfied with DC plan. Transportation provider at discharge will be with his mother, Veena Escobar ([phone]). CM will continue to follow and will assist as needed with dc plans/needs. DCPIA - Discharge Planning Initial Assessment Updated by [email or web address]: Eduardo Garcia on 05/13/20 5:32 pm * Is the patient Alert and Oriented? Yes * How many steps to enter\exit or inside your home? 0/0 * PCP [facility] * [facility] * Preadmission Environment Home Alone * ADLs Independent * Equipment None * Other Equipment n/a * List name and contact numbers for known caregivers / representatives who currently or will assist patient after discharge: VEENA ESCOBAR (mother) [phone] * Verbal permission to speak to the caregivers and representatives has been obtained from the patient. Yes * Community resources currently utilized None * Please name any agencies selected above. n/a * Additional services required to return to the preadmission environment? No * Can the patient safely return to the preadmission environment? Yes * Has this patient been hospitalized within the prior 30 days at any hospital? No External Providers External Provider: [facility] Next Contact Date: Service Request Date: Service Type: Resolution: Reviewer: Comments: Last DP export: 05/26/20 9:22 am Patient Name: ARI ESCOBAR Page [phone] at 1240 All edits/amendments must be made on the electronic document DICTATION DATE: 05/26/20 1240 SALES AMBASSADOR: NATALIE 05/26/20 1240 RPT#: [id number] DC DATE: STATUS: ADM IN [facility] [address] [place] [address] END OF REPORT
[2020-05-26 13:04] VITALS: BP 116/76
[2020-05-26 15:35] VITALS: BP 132/78
[2020-05-26] MEDS ORDERED: PROPRANOLOL HCL20 MG PO (18:10)
[2020-05-26] MEDS ORDERED: LEVOFLOXACIN500 MG PO (18:11)
[2020-05-26] MEDS ORDERED: TYLENOL W/CODEI1 TAB PO (18:11)
[2020-05-26] MEDS ORDERED: MULTI-DAY VITAM1 TAB PO (18:12)
[2020-05-26] MEDS ORDERED: FLAGYL500 MG PO (18:13)
--- NOTE | 2020-05-26 19:45 | NUR ---
D/C'D RT IJ AND TELEMETRY. FAMILY AT ER AWAITING PT. REMOVED ALL PERSONAL BELONGINGS. OVERVIEWED DISCHAGE INSTRUCTIONS WITH NO QUESTIONS. STRONGLY URGED HIM TO NOT DRINK WITH ABT. VERAL YES GIVEN. ALSO, EDUCATED ON APPTS. AND HOME HEALT CARE. BROTHER HAD ALREADY PICKED UP MEDICATION. PORTABLE WOUND VAC ATTACHED AND TAKEN WITH HIM. INSTRUCTIONS GIVEN ON CHARGING AND NOT TO GET DSG WET. VOICED UNDERSTANDING ON ALL INSTRUCTIONS. FAMILY AT ER ENTRANCE IN PERSONAL VECHICLE. VIRYI.Y ALSO INSTRUCTED ON WOUND VAC, HOME NURSE AND NEED TO OBSTAIN FROM ALOCHOL.
--- NOTE | 2020-05-26 20:41 | MORECARE ---
CASE MANAGEMENT DISCHARGE SUMMARY PATIENT: ARI ESCOBAR UNIT: [id number] ADM DATE: 05/13/20 AGE: 30 : 89 SEX: M ROOM/BED: D.3945 AUTHOR: RADHA,DOC PHYSICIAN: REFERRING PHYSICIAN: KARINA GAYTAN MD DATE OF SERVICE: 05/26/20 Discharge Plan Patient Name: ARI ESCOBAR Facility: [facility]:[place] : 1990 Planned Disposition: Home Anticipated Discharge Date: Discharge Date: 05/26/2020 Expected LOS: Initial Reviewer: [email or web address] Initial Review Date: 05/13/2020 Generated: 05/26/20 9:40 pm Comments DCP- Discharge Planning Updated by [email or web address]: Chloé Christine on 05/26/20 7:[address] Mott notified CM that patient could discharge home if Home Health services could be set up and see patient tomorrow. Patient will also need Wound Vac. CM contacted [facility] and they will be able to see patient and admit Saturday 05/27 awaiting insurance approval. CM contacted [facility] / regarding wound vac records faxed to both [facility] and [facility]. CM did not get approval back from insurance for both the wound vac and HHS until 5 pm. CM had also sent an order for a walker to Jessica. Jessica to deliver to patient's room. CM called in scripts to [facility] on [address] patient's brother is to pick them up prior to picking up patient since they close early. Wound Vac delivered to nurses station for home use. CM gave to nursing for placement. CM will continue to follow and assist as needed with discharge planning / needs. DCP- Discharge Planning Updated by [email or web address]: Eduardo Garcia on 05/13/20 4:[address] CM met with patient to complete DC plan and to evaluate needs. Patient lives independently home alone. At discharge patient plans to return home and feels this is a safe discharge. CM discussed availability of home health, rehab services, and medical equipment. Patient declined HHS, SNF, IPR, and DME. Patient voiced no other needs at this time and is satisfied with DC plan. Transportation provider at discharge will be with his mother, Veena Escobar ([phone]). CM will continue to follow and will assist as needed with dc plans/needs. DCPIA - Discharge Planning Initial Assessment Updated by [email or web address]: Eduardo Garcia on 05/13/20 5:32 pm * Is the patient Alert and Oriented? Yes * How many steps to enter\exit or inside your home? 0/0 * [facility] * Pharmacy [facility] * Preadmission Environment Home Alone * ADLs Independent * Equipment None * Other Equipment n/a * List name and contact numbers for known caregivers / representatives who currently or will assist patient after discharge: VEENA ESCOBAR (mother) [phone] * Verbal permission to speak to the caregivers and representatives has been obtained from the patient. Yes * Community resources currently utilized None * Please name any agencies selected above. n/a * Additional services required to return to the preadmission environment? No * Can the patient safely return to the preadmission environment? Yes * Has this patient been hospitalized within the prior 30 days at any hospital? No Last DP export: 05/26/20 11:40 am Patient Name: ARI ESCOBAR Page [id number] at 2041 All edits/amendments must be made on the electronic document DICTATION DATE: 05/26/202039 CREW LEADER: NATALIE 05/26/202039 RPT#: [id number] DC DATE:05/26/20 STATUS: DIS IN [facility] [address] [place] [address] END OF REPORT
--- NOTE | 2020-05-26 20:47 | MORECARE ---
CASE MANAGEMENT DISCHARGE SUMMARY PATIENT: ARI ESCOBAR UNIT: [id number] ADM DATE: 05/13/20 AGE: 30 : 89 SEX: M ROOM/BED: D.7535 AUTHOR: RADHA,DOC PHYSICIAN: REFERRING PHYSICIAN: KARINA GAYTAN MD DATE OF SERVICE: 05/26/20 Discharge Plan Patient Name: ARI ESCOBAR Facility: [facility]:[place] : 1990 Planned Disposition: Home Anticipated Discharge Date: Discharge Date: 05/26/2020 Expected LOS: Initial Reviewer: [email or web address] Initial Review Date: 05/13/2020 Generated: 05/26/20 9:46 pm Comments DCP- Discharge Planning Updated by [email or web address]: Chloé Christine on 05/26/20 7:[address] CM faxed signed form to [facility] DCP- Discharge Planning Updated by [email or web address]: Chloé Christine on 05/26/20 7:[address] Mott notified CM that patient could discharge home if Home Health services could be set up and see patient tomorrow. Patient will also need Wound Vac. [facility] contacted [facility] and they will be able to see patient and admit Saturday 05/27 awaiting insurance approval. CM contacted [facility] / regarding wound vac records faxed to both [facility] and [facility]. CM did not get approval back from insurance for both the wound vac and [facility] until 5 pm. CM had also sent an order for a walker to [facility]. Jessica to deliver to patient's room. CM called in scripts to [facility] on [address] patient's brother is to pick them up prior to picking up patient since they close early. Wound Vac delivered to nurses station for home use. CM gave to nursing for placement. CM will continue to follow and assist as needed with discharge planning / needs. DCP- Discharge Planning Updated by [email or web address]: Eduardo Garcia on 05/13/20 4:[address] CM met with patient to complete DC plan and to evaluate needs. Patient lives independently home alone. At discharge patient plans to return home and feels this is a safe discharge. CM discussed availability of home health, rehab services, and medical equipment. Patient declined HHS, SNF, IPR, and DME. Patient voiced no other needs at this time and is satisfied with DC plan. Transportation provider at discharge will be with his mother, Veena Escobar ([phone]). CM will continue to follow and will assist as needed with dc plans/needs. DCPIA - Discharge Planning Initial Assessment Updated by [email or web address]: Eduardo Garcia on 05/13/20 5:32 pm * Is the patient Alert and Oriented? Yes * How many steps to enter\exit or inside your home? 0/0 * [facility] * Pharmacy [facility] * Preadmission Environment Home Alone * ADLs Independent * Equipment None * Other Equipment n/a * List name and contact numbers for known caregivers / representatives who currently or will assist patient after discharge: VEENA ESCOBAR (mother) [phone] * Verbal permission to speak to the caregivers and representatives has been obtained from the patient. Yes * Community resources currently utilized None * Please name any agencies selected above. n/a * Additional services required to return to the preadmission environment? No * Can the patient safely return to the preadmission environment? Yes * Has this patient been hospitalized within the prior 30 days at any hospital? No Coverage Notice Reviewer: [email or web address] Erik Christine Notice Issued Date-Time: 05/26/2020 10:15 Notice Type: Patient Choice Letter Notice Delivered To: Patient Relationship to Patient: Etl Architect Name: Delivery Method: HAND - Hand Delivered Stephanie Days: Prior Verbal Notification: Recipient Understood Notice: Yes Recipient Signature: Yes Med Rec Note Co-signed by Attending: Coverage Notice Comment: Last DP export: 05/26/20 7:41 pm Patient Name: ARI ESCOBAR Page [id number] at 2047 All edits/amendments must be made on the electronic document DICTATION DATE: 05/26/202046 RELIGIOUS EDUCATION TEACHER: NATALIE 05/26/202046 RPT#: [id number] DC DATE:05/26/20 STATUS: DIS IN [facility] [address] [place] [address] END OF REPORT
== END 2020-05-26 19:10 | disposition home health service (06) | DRG 853 ==
LOC: D.ER 10:22 → D.EDHOLD 15:35 → D.M2 15:35 → D.ICU 15:35 → D.MS 15:35 → D.ICU 05-20 17:44 → D.M2 05-22 13:32
PROVIDERS: Anesthesiology; Family Medicine; Internal Medicine Gastroenterology; Surgery; ADMIT Emergency Medicine; ATTEND Emergency Medicine
PROC: 0F9G00Z Drainage of Pancreas with Drainage Device, Open Approach (ICD-10-PCS; principal; 2020-05-22 07:30)
DX: A41.9 Sepsis, unspecified organism (principal); K85.22 Alcohol induced acute pancreatitis with infected necrosis; R17 Unspecified jaundice; R00.0 Tachycardia, unspecified; E66.9 Obesity, unspecified; Z68.30 Body mass index [BMI] 30.0-30.9, adult; F10.10 Alcohol abuse, uncomplicated